=== PATIENT | female | born 1970 | race Caucasian/White ===

== ENCOUNTER → 2024-03-02 13:08 | Outpatient (REF) | payer OTHER, SELFPAY | LOC: WDC 13:08 | PROVIDERS: ATTENDING PHYSICIAN Obstetrics & Gynecology; FAMILY PHYSICIAN Family Medicine | DX: Z12.31 Encounter for screening mammogram for malignant neoplasm of breast (principal) | CPT/HCPCS: 77063; 77067 ==

== ENCOUNTER → 2025-03-05 13:36 | Outpatient (REF) | payer OTHER, SELFPAY | LOC: WDC 13:36 | PROVIDERS: ATTENDING PHYSICIAN Obstetrics & Gynecology; FAMILY PHYSICIAN Family Medicine | DX: Z12.31 Encounter for screening mammogram for malignant neoplasm of breast (principal) | CPT/HCPCS: 77063; 77067 ==

== ENCOUNTER → 2025-05-14 11:02 | Outpatient (REF) | payer OTHER, SELFPAY | LOC: HWRAD 11:02 | PROVIDERS: ATTENDING PHYSICIAN Otolaryngology; FAMILY PHYSICIAN Family Medicine | DX: J30.9 Allergic rhinitis, unspecified (principal); J32.2 Chronic ethmoidal sinusitis | CPT/HCPCS: 70486 ==